=== PATIENT | female | born 1970 ===

== ENCOUNTER 2019-04-12 10:13 | Outpatient (CLI) | payer OTHER ==
[~2019-04-12 10:13] MED LIST: BENADRYL25 MG PO; MEDROL8 MG PO; NABUMETONE500 MG PO; PERCOCET 5/3251 TAB PO
== END 2019-04-12 10:21 | disposition home or self-care (01) ==
LOC: RAD 10:13 → MAMO-SONO 10:15 → RAD 10:21
DX: M77.41 Metatarsalgia, right foot (principal); M77.42 Metatarsalgia, left foot

== ENCOUNTER 2020-05-31 14:09 | Emergency (ER) | payer OTHER ==
[~2020-05-31] VITALS: Ht 154.9 cm; Wt 60.3 kg
== END 2020-05-31 18:28 | disposition home or self-care (01) ==
LOC: ER 14:09
DX: U07.1 COVID-19 (principal)

== ENCOUNTER 2021-06-20 12:19 | Outpatient (CLI) | payer OTHER | END 2021-06-20 12:25 | disposition home or self-care (01) | LOC: RAD 12:19 | PROVIDERS: ATTEND Physical Medicine & Rehabilitation | DX: M54.2 Cervicalgia (principal); M54.6 Pain in thoracic spine ==

== ENCOUNTER 2022-12-25 12:07 | Outpatient (CLI) | payer OTHER | END 2022-12-25 12:14 | disposition home or self-care (01) | LOC: RAD 12:07 | PROVIDERS: ATTEND Physical Medicine & Rehabilitation | DX: M54.2 Cervicalgia (principal); M25.511 Pain in right shoulder ==

== ENCOUNTER 2023-04-23 09:40 | Outpatient (CLI) | payer OTHER | END 2023-04-23 09:51 | disposition home or self-care (01) | LOC: SONOGRAMA 09:40 | PROVIDERS: ATTEND Physical Medicine & Rehabilitation | DX: M25.511 Pain in right shoulder (principal) ==